=== PATIENT | male | born 1985 | race Two or more races ===

== ENCOUNTER 2020-12-04 14:16 | Emergency (ER) | payer OTHER ==
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
[2020-12-04] MEDS ORDERED: KETOROLAC 30 MG/ML VIAL IM STA (14:39)
[2020-12-04] MEDS ORDERED: HYDROmorphone 2 MG/ML VIAL IM STA (14:40)
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
[2020-12-04] MEDS ORDERED: HYDROmorphone 1 MG/ML CARPUJECT IVP STA ×2 (16:13→17:59)
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
[2020-12-04 18:07] VITALS: BP 121/74
== END 2020-12-04 19:09 | disposition home or self-care (01) ==
LOC: ED 14:16
DX: S32.511A Fracture of superior rim of right pubis, initial encounter for closed fracture (principal); S32.591A Other specified fracture of right pubis, initial encounter for closed fracture; S29.011A Strain of muscle and tendon of front wall of thorax, initial encounter; V28.0XXA Motorcycle driver injured in noncollision transport accident in nontraffic accident, initial encounter; Y93.89 Activity, other specified; Y92.410 Unspecified street and highway as the place of occurrence of the external cause
CPT/HCPCS: 71045; 72192; 73502; 96372; 96374; 96376; 99283; 99284; J1170

== ENCOUNTER 2020-12-09 10:55 | Outpatient (CLI) | payer OTHER | END 2020-12-09 10:56 | disposition short-term general hospital (02) | LOC: EMS 10:55 | DX: R07.89 Other chest pain (principal) | CPT/HCPCS: A0425; A0429 ==

== ENCOUNTER 2021-01-14 08:00 | Outpatient (CLI) | payer OTHER ==
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
== END 2021-01-14 23:59 | disposition home or self-care (01) ==
LOC: DI.N 08:00
PROVIDERS: ATTEND Orthopaedic Surgery
DX: S32.591A Other specified fracture of right pubis, initial encounter for closed fracture (principal); S22.41XA Multiple fractures of ribs, right side, initial encounter for closed fracture; M16.0 Bilateral primary osteoarthritis of hip

== ENCOUNTER 2021-02-25 12:14 | Outpatient (CLI) | payer OTHER ==
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
== END 2021-02-25 23:59 | disposition home or self-care (01) ==
LOC: DI.N 12:14
PROVIDERS: ATTEND Orthopaedic Surgery
DX: S32.591D Other specified fracture of right pubis, subsequent encounter for fracture with routine healing (principal)

== ENCOUNTER 2021-05-27 15:00 | Outpatient (CLI) | payer OTHER ==
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
== END 2021-05-27 23:59 | disposition home or self-care (01) ==
LOC: DI.N 15:00
PROVIDERS: ATTEND Orthopaedic Surgery
DX: S32.591D Other specified fracture of right pubis, subsequent encounter for fracture with routine healing (principal)

== ENCOUNTER 2021-10-29 08:27 | Outpatient (CLI) | payer OTHER ==
--- NOTE | 2021-10-29 10:59 | MRI Report ---
PROCEDURE: Pelvis W/O INDICATIONS: PELVIS FX TECHNIQUE: Noncontrast coronal T1 spin echo and STIR through the bony pelvis. Coronal and axial T2 fast spin ec ho with fat saturation, sagittal T1 spin echo, and oblique axial T2 fast spin echo with fat saturatio n through the right hip. COMPARISON: CT pelvis 08/11/2021 and 12/04/2020 FINDINGS: Image quality: Excellent. Bones and joints: Previously seen fractures of the right superior and inferior pubic rami appear heal ed without residual osseous edema. Mild residual fracture deformity is present. There is no acute tra becular bone injury. No suspicious osseous lesion is seen. No avascular necrosis of the femoral heads . Mild facet hypertrophy is seen in the lower lumbar spine. Tendons: The gluteus medius and minimus tendons appear intact, without associated muscle atrophy. T he iliopsoas tendon appears intact, without adjacent bursal fluid collections. The origin of the ham string tendon is intact at the ischial tuberosity. The tendons for the direct and indirect heads of the rectus femoris muscle appear intact. Labrum and cartilage: The acetabular labrum appears intact. Cartilage surface of the femoral head a ppears of normal thickness. There is normal morphology of the femoral head and acetabulum. There is m ild thickening of the joint capsule. Soft tissues: Visualized muscles demonstrate normal bulk and internal signal. The proximal sciatic neurovascular bundle appears normal adjacent to the hamstring tendons. No acute abnormality is seen i n the included pelvis. IMPRESSION: 1.Healed fractures of the right superior and inferior pubic rami are again seen with mild deformity b ut no residual osseous edema. 2.No acetabular labral tear is seen. No significant arthritic changes. No significant ligament or ten don injury is seen. 3.Mild thickening of the right hip joint capsule is nonspecific and can be seen in running athletes. Capsulitis could appear similarly. This finding appears symmetric when compared to the left side. Reviewed by: Mich Biswas MD on 10/29/2021 10:57 AM [facility] Approved by: Mich Biswas MD on 10/29/2021 10:57 AM PST Station ID: [id number]
== END 2021-10-29 08:28 | disposition home or self-care (01) ==
LOC: DI 08:27
PROVIDERS: ATTEND Orthopaedic Surgery
DX: R10.2 Pelvic and perineal pain (principal); M95.5 Acquired deformity of pelvis